=== PATIENT | male | born 1950 | race Caucasian/White ===

== ENCOUNTER 2017-07-23 07:47 | Day surgery (SDC) | payer MEDICARE, OTHER ==
[2017-07-21 10:52] VITALS: BMI 36.7
[~2017-07-23 07:47] MED LIST: LACTATED RINGERS 1,000 ML IV SCH; LIDOCAINE 1% 20 ML VIAL (10MG/ML) FOR IV START INTRADERMA PRN
[2017-07-23 08:19] VITALS: RESP 16; TEMP 97.7
[2017-07-23 08:24] LABS: Glucose,Whole Blood 153 mg/dL (75-99)
[2017-07-23] MEDS ORDERED: PROPOFOL 10 MG/ML 20 ML VIAL IV ONE (08:42)
--- NOTE | 2017-07-23 09:14 | P.PCN ---
Date of Procedure: 07/23/17 Preoperative Diagnosis: Postoperative Diagnosis: Procedure(s) Performed: Procedure: Total colonoscopy. Preoperative diagnosis: Screening for neoplasia, patient has history of polyps. Postoperative diagnosis: Diverticulosis with no evidence of acute diverticulitis , strictures, polyps or cancer. Preparation: HalfLytely prep. Sedation: Was provided by anesthesia. Brief clinical history: The patient is a 67-year-old male who is scheduled for this evaluation for screening for neoplasia because of history of polyps. His last exam was in April 2012. The patient has no abdominal complaints bleeding or anemia. Procedure: With the patient on his left lateral decubitus position and after informed consent and adequate sedation, the perianal area was inspected and it did not show any fissures or fistulas. There were no masses felt on digital rectal examination. The Olympus CFQ 160L video colonoscope was then inserted in the rectum in the usual fashion and advanced to the cecum. Unfortunately, the preparation was less than ideal, and there was significant amount of thick fecal debris and fecal material for which I spent sometime washing and mobilizing. The mucosa appeared healthy. No obvious polyps or tumors were seen. Multiple diverticular orifices were seen scattered on both, the right and left side of the colon with no evidence of acute diverticulitis or strictures. I retroflexed the endoscope in the rectum before the endoscope was withdrawn. The patient tolerated the procedure well. Plan: The patient was reassured. Discussed dietary measures. He will follow up with you as planned and I recommended repeat exam in 5 years. Implants: Indications for Procedure: Operative Findings: Description of Procedure:
[2017-07-23 09:17] VITALS: PULSE 60
[2017-07-23 09:25] LABS: Glucose,Whole Blood 159 mg/dL (75-99)
[2017-07-23 09:57] VITALS: BP 118/65
== END 2017-07-23 10:02 | disposition home or self-care (01) ==
LOC: ORWHC2ENDO 07:47
DX: Z12.11 Encounter for screening for malignant neoplasm of colon (principal); K57.30 Diverticulosis of large intestine without perforation or abscess without bleeding; Z86.010 Personal history of colon polyps; M19.90 Unspecified osteoarthritis, unspecified site; E11.9 Type 2 diabetes mellitus without complications; I10 Essential (primary) hypertension; M10.9 Gout, unspecified; E78.5 Hyperlipidemia, unspecified; Z95.0 Presence of cardiac pacemaker; Z79.899 Other long term (current) drug therapy; Z79.82 Long term (current) use of aspirin; Z79.84 Long term (current) use of oral hypoglycemic drugs; Z87.891 Personal history of nicotine dependence
CPT/HCPCS: J2704; G0105

== ENCOUNTER → 2018-11-11 | Outpatient (CLI) | payer MEDICARE, OTHER ==
--- NOTE | 2018-11-11 11:19 | CT ---
EXAMINATION TYPE: CT cervical spine wo con DATE OF EXAM: 11/11/2018 COMPARISON: None HISTORY: Neck pain, Spondylosis CT DLP: 717.90 mGycm CONTRAST: None CT of the cervical spine is performed in the axial plane at 2 mm thick sections. Reconstructed image s in the coronal, and sagittal plane are reviewed on the computer. No acute fractures are evident. There is straightening of the cervical spine sagittal plane. Posterior spinal lamellar line is intact . There is loss of disc height C6-7. Milder disc height loss may be present C4-5 through C7-T1. Vertebral body heights are preserved. No AP spinal canal stenosis is present. Some endplate spurring is from the inferior endplate of C5. S pondylosis is present. Facet hypertrophy is present on the left at C2-3 with mild foraminal narrowing. Uncovertebral joint h ypertrophy is causing narrowing of the right C3-4 foramen. IMPRESSIONS: 1. Degenerative disc changes discussed above. 2. Uncovertebral joint hypertrophy and some facet hypertrophy contributing to foraminal narrowing dis cussed above
== END | disposition home or self-care (01) ==
LOC: RADCTMAIN 10:02
PROVIDERS: ATTEND Physical Medicine & Rehabilitation
DX: M99.71 Connective tissue and disc stenosis of intervertebral foramina of cervical region (principal); M47.812 Spondylosis without myelopathy or radiculopathy, cervical region; M46.92 Unspecified inflammatory spondylopathy, cervical region
CPT/HCPCS: 72125

== ENCOUNTER → 2021-06-12 | Outpatient (CLI) | payer MEDICARE ==
--- NOTE | 2021-06-12 13:08 | US ---
EXAMINATION TYPE: US duplex aorta DATE OF EXAM: 06/12/2021 COMPARISON: NONE CLINICAL HISTORY: Z13.6 Screening for abdominal aortic aneurysm. no symptoms or family history EXAM MEASUREMENTS: Abdominal Aorta: Proximal: 2.2 x 2.4cm Mid: 2.1 x 2.0cm Distal: 1.7 x 2.1cm Bifurcation: not seen due to bowl gas IMPRESSION: No sonographic evidence for abdominal aortic aneurysm.
== END | disposition home or self-care (01) ==
LOC: RADUSWWP 09:31
PROVIDERS: ATTEND Family Medicine
DX: Z13.6 Encounter for screening for cardiovascular disorders (principal)
CPT/HCPCS: 93979

== ENCOUNTER → 2021-08-12 | Outpatient (CLI) | payer MEDICARE ==
[2021-08-12 16:10] LABS: Chol/HDL Ratio 2.25; LDL Cholesterol,Calculated 52.6 mg/dL (0.0-131.0); VLDL Calculation 18.4 mg/dL (5.00-40.00)
== END | disposition home or self-care (01) ==
LOC: LABWHC1 08:45
PROVIDERS: ATTEND Family Medicine
DX: E11.40 Type 2 diabetes mellitus with diabetic neuropathy, unspecified (principal); E78.00 Pure hypercholesterolemia, unspecified
CPT/HCPCS: 36415; 80061; 83036

== ENCOUNTER → 2021-08-12 | Outpatient (CLI) | payer MEDICARE ==
[2021-08-12 09:19] LABS: HGB 13.3 gm/dL (13.0-17.5); MCHC 33.3 g/dL (31.0-37.0); MCV 92.8 fL (80.0-100.0); Mean Platelet Volume 7.6; Platelet Count 200 k/uL (150-450); RBC 4.31 m/uL (4.30-5.90); RDW 13.3 % (11.5-15.5); WBC 6.1 k/uL (3.8-10.6)
[2021-08-12 09:28] LABS: Albumin 4.2 g/dL (3.5-5.0); Calcium 10.1 mg/dL (8.4-10.2); Potassium 5.2 mmol/L (3.5-5.1); Total Protein 7.2 g/dL (6.3-8.2)
[2021-08-12 09:37] LABS: INR 0.9 (<1.2); Partial Thromboplastin Time 21.9 sec (22.0-30.0); Prothrombin Time 10.2 sec (9.0-12.0)
[2021-08-12 09:50] LABS: Appearance,Urine Clear (Clear); Bilirubin,Urine Negative (Negative); Blood,Urine Negative (Negative); Color,Urine Light Yellow; Glucose,Urine (UA) Negative (Negative); Hyaline Casts,Urine 1 /lpf (0-2); Ketones,Urine Negative (Negative); Leukocyte Esterase,Urine Moderate (Negative); Mucus,Urine Rare /hpf; Nitrite,Urine Negative (Negative); Protein,Urine Negative (Negative); RBC,Urine 1 /hpf (0-5); Specific Gravity,Urine 1.006 (1.001-1.035); Squamous Epithelial Cell,Urine <1 /hpf (0-4); Urobilinogen,Urine <2.0 mg/dL (<2.0); WBC,Urine 1 /hpf (0-5)
== END ==
LOC: PAT 08:14
PROVIDERS: ATTEND Orthopaedic Surgery
DX: Z01.812 Encounter for preprocedural laboratory examination (principal); E11.40 Type 2 diabetes mellitus with diabetic neuropathy, unspecified; E78.00 Pure hypercholesterolemia, unspecified
CPT/HCPCS: 36415; 80053; 81001; 85027; 85610; 85730; 87070

== ENCOUNTER 2021-08-29 06:16 | Day surgery (SDC) | payer MEDICARE ==
[2021-08-28 10:53] VITALS: BMI 34.4
[~2021-08-29 06:16] MED LIST changes: -LACTATED RINGERS 1,000 ML IV SCH; -LIDOCAINE 1% 20 ML VIAL (10MG/ML) FOR IV START INTRADERMA PRN; +SODIUM CHLORIDE 0.9% 1,000 ML IV SCH
[2021-08-29] MEDS ORDERED: SODIUM CHLORIDE 0.9% 500 ML 500 ML IV ONE (06:48)
[2021-08-29 07:08] LABS: Glucose,Whole Blood 112 mg/dL (75-99)
[2021-08-29 07:14] VITALS: BP 179/83; RESP 16; TEMP 98.6
[2021-08-29] MEDS ORDERED: IOPAMIDOL-300 50ML BTL INJ ONE (08:23)
[2021-08-29 08:30] VITALS: PULSE 80
--- NOTE | 2021-08-29 09:02 | P.EPPROC ---
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 These right-sided leads Right atrial lead was a screw-in lead in the right atrial appendage. No fractures or breaks noted excellent position RV lead screwed in the RV apex excellent position Right upper extremity venogram 50 mL IV dye injected 100% Occluded axillary/subclavian vein Cephalic vein empties into the internal jugular Left upper extremity venography performed Patent cephalic vein Nonvisualization of the axillary vein but the innominate flow is excellent No innominate stenosis no innominate SVC junction stenosis Plan Proceed with LV lead implant from the left side Tunneling of the lead to the right side Procedure will be performed under general anesthesia
== END 2021-08-29 08:52 | disposition home or self-care (01) ==
LOC: CATHEP 06:16
PROVIDERS: ATTEND Internal Medicine Clinical Cardiac Electrophysiology
DX: I25.10 Atherosclerotic heart disease of native coronary artery without angina pectoris (principal); I10 Essential (primary) hypertension; E78.5 Hyperlipidemia, unspecified; E11.9 Type 2 diabetes mellitus without complications; F17.210 Nicotine dependence, cigarettes, uncomplicated; Z79.82 Long term (current) use of aspirin; Z79.899 Other long term (current) drug therapy
CPT/HCPCS: 36005; 75820; 87635; Q9967

== ENCOUNTER → 2021-10-18 | Outpatient (CLI) | payer MEDICARE | END | disposition home or self-care (01) | LOC: LABPAT 09:11 | PROVIDERS: ATTEND Internal Medicine Clinical Cardiac Electrophysiology | DX: Z01.812 Encounter for preprocedural laboratory examination (principal); Z20.822 Contact with and (suspected) exposure to COVID-19 | CPT/HCPCS: 87635; C9803 ==

== ENCOUNTER 2021-10-22 09:54 | Day surgery (SDC) | payer MEDICARE ==
[2021-10-17 15:29] VITALS: BMI 35.5
[~2021-10-22 09:54] MED LIST changes: +LACTATED RINGERS 1,000 ML IV SCH; -SODIUM CHLORIDE 0.9% 1,000 ML IV SCH; +ceFAZolin 1 GM in SODIUM CHLORIDE 0.9% 250 ML IRRIGATION PRN
[2021-10-22 10:22] LABS: Glucose,Whole Blood 126 mg/dL (75-99)
[2021-10-22 10:34] LABS: Basophils % (A) 0 %; Eosinophils # (A) 0.3 k/uL (0-0.7); Eosinophils % (A) 4 %; HCT 42.9 % (39.0-53.0); HGB 14.3 gm/dL (13.0-17.5); Lymphocytes # (A) 2.1 k/uL (1.0-4.8); Lymphocytes % (A) 25 %; MCH 30.1 pg (25.0-35.0); MCHC 33.3 g/dL (31.0-37.0); MCV 90.5 fL (80.0-100.0); Mean Platelet Volume 7.8; Monocytes # (A) 0.5 k/uL (0-1.0); Monocytes % (A) 6 %; Neutrophils # (A) 5.3 k/uL (1.3-7.7); Neutrophils % (A) 63 %; Platelet Count 239 k/uL (150-450); RBC 4.74 m/uL (4.30-5.90); RDW 12.6 % (11.5-15.5); WBC 8.4 k/uL (3.8-10.6)
[2021-10-22 10:49] LABS: African American GFR (CKD) >90 (>60 ml/min/1.73 sqM); Anion Gap 10 mmol/L; Blood Urea Nitrogen 15 mg/dL (9-20); Calcium 10.2 mg/dL (8.4-10.2); Carbon Dioxide 24 mmol/L (22-30); Chloride 105 mmol/L (98-107); Glucose 149 mg/dL (74-99); Non-African American GFR(CKD) 84 (>60 ml/min/1.73 sqM); Sodium 139 mmol/L (137-145)
[2021-10-22] MEDS ORDERED: LIDOCAINE 1% INJ 10MG/ML (20 ML MDV) ONE ×2 (10:50→11:25)
[2021-10-22 10:57] LABS: Potassium 5.1 mmol/L (3.5-5.1)
[2021-10-22] MEDS ORDERED: IV FLUID CONTINUATION 1,000 ML IV ONE (11:15)
[2021-10-22] MEDS ORDERED: PROPOFOL 10 MG/ML 20 ML VIAL IV ONE (11:25)
[2021-10-22] MEDS ORDERED: fentaNYL (PF) 50 MCG/ML 2 ML AMP ONE (11:25)
[2021-10-22] MEDS ORDERED: MIDAZOLAM 2 MG/2 ML VIAL ONE (11:25)
[2021-10-22] MEDS ORDERED: PHENYLEPHRINE-0.9% NACL SYG 1,000 MCG/10 ML SYRINGE ONE (11:25)
[2021-10-22] MEDS ORDERED: SUCCINYLCHOLINE CHLORIDE 100 MG/5 ML SYR IV ONE (11:25)
[2021-10-22] MEDS ORDERED: LIDOCAINE 1% INJ 10MG/ML (20 ML MDV) SQ ONE ×2 (12:18→12:30)
[2021-10-22] MEDS ORDERED: VANCOMYCIN 2,000 MG in SODIUM CHLORIDE 0.9% 500 ML 500 ML IVPB STA (12:20)
[2021-10-22] MEDS ORDERED: IOPAMIDOL-370 50ML BTL INJ ONE (12:39)
[2021-10-22] MEDS ORDERED: ACETAMINOPHEN TAB 325 MG TAB PO PRN (14:27)
[2021-10-22] MEDS ORDERED: ACETAMINOPHEN IV (For NPO) 1,000 MG in EMPTY BAG 1 BAG IVPB ONE (14:27)
--- NOTE | 2021-10-22 15:29 | CE ---
CARDIAC ELECTROPHYSIOLOGY REPORT Mr. Raul Fernandez is a 71-year-old male patient of Dr. Garza who had right sided dual-chamber pacemaker implanted several years back. He has 2:1 heart block and has 100% RV pacing. He has developed progressive cardiomyopathy. He underwent an upgrade to a biventricular pacemaker. The patient is brought to the EP lab in a fasting state. Written informed consent was obtained prior to the procedure. The procedure performed under general anesthesia. The LV lead was implanted from the left subclavian floor/axillary vein. Once this was performed, the lead was tunneled under the skin to the right side and connected to a new generator and implanted in the right side. The old right-sided dual pacemaker generator was explanted. IV antibiotics were administered. A 3 cm incision was made in the left deltopectoral groove. A small subfascial pocket was made. Hemostasis was assured. The left axillary vein was accessed and a sheath was placed. The coronary sinus was accessed. The coronary sinus venogram revealed an anterolateral vein. The anterolateral vein had significant tortuosity and therefore this vein was subselected and an Advantage wire was placed in the vein. The subselecting sheath was placed into the vein. The lead was delivered. The screw-in lead the Medtronic lead was placed. This was a Medtronic model #4798, 88 cm length and serial number [id number]. This was screwed in position and was found to be stable. Pacing thresholds were excellent. Diaphoretic stimulation was noted only in the proximal pacing leads intermittently at 10V. It was absent at 5 V. There was no diaphragmatic stimulation when pacing by pulse. Once the lead was secured, the sheaths were removed. The lead was secured to the underlying pectoralis muscle. The right-sided pocket was then accessed. An incision was made over the generator. The incision was carried down to the level of the generator. The leads were freed. A new subfascial pocket was made to accommodate the larger generator. Hemostasis was assured. Using a tunneling tool, the LV lead from the left side was delivered under the skin, within the subcutaneous tissue into the right side. The new generator was implanted while the old generator was explanted. The new generator was [id number], serial number [id number]. This was a Medtronic Solada quadripolar device CRTP MRI. The old generator was an Ivisor DR, serial number [id number]. The leads were interrogated and then connected to the new generator. The generator was secured to the underlying pectoralis muscle on the right side and the wound was closed in 3 layers and dressed per protocol. The left-sided wound was also closed and dressed per protocol in 3 layers. RESULT: 1. Left-sided LV lead implant: Medtronic screw-in lead in the anterolateral vein. 2. Right-sided dual-chamber pacemaker generator explant for progressive cardiomyopathy, complete heart block with 100% RV pacing. 3. Tunneling of the LV lead from the left side to the right side. 4. Implantation of right-sided biventricular pacemaker generator. This was a long procedure involving tunneling of the lead and opening two pockets and forming 2 subfascial pockets, 1 for the left side and 1 for the right side of new the pocket. Patient tolerated the procedure well without any acute complications. He received IV vancomycin through the procedure. MMODL / IJN: [id number] /
--- NOTE | 2021-10-22 15:35 | XR ---
EXAMINATION TYPE: XR chest 1V portable DATE OF EXAM: 10/22/2021 COMPARISON: Chest x-ray 08/12/2014 HISTORY: Lead placement check TECHNIQUE: Single frontal view of the chest is obtained. FINDINGS: There is been placement of a generator in the right pectoral region, there are leads cours ing into the right atrium, right ventricle, coronary sinus level. Coronary sinus lead courses via the left subclavian approach. No evident pneumothorax or pleural effusion. Heart is enlarged. Technique is apical lordotic and rotated. Aorta is dense. There are overlying artifacts. IMPRESSION: No evident, condition status post lead placement as described.
[2021-10-22] MEDS: SODIUM CHLORIDE 0.9% 1,000 ML IV SCH ×8 (17:33→17:43)
[2021-10-22 17:53] LABS: Glucose,Whole Blood 126 mg/dL (75-99)
[2021-10-22 20:36] LABS: Glucose,Whole Blood 223 mg/dL (75-99)
[2021-10-22] MEDS ORDERED: ATORVASTATIN 40 MG TAB PO SCH (21:00)
[2021-10-22] MEDS ORDERED: METOPROLOL SUCCINATE (ER) 100 MG TAB.ER.24H PO SCH (21:00)
[2021-10-22] MEDS: lisinopriL 20 MG TAB PO SCH (21:10)
[2021-10-22 22:45] VITALS: RESP 18
[2021-10-23 05:42] LABS: Glucose,Whole Blood 162 mg/dL (75-99)
[2021-10-23] MEDS ORDERED: glipiZIDE 5 MG TAB PO SCH (07:30)
[2021-10-23 07:58] VITALS: BP 149/76; PULSE 73; TEMP 98.3
[2021-10-23] MEDS: lisinopriL 20 MG TAB PO SCH (07:59)
[2021-10-23] MEDS ORDERED: METOPROLOL SUCCINATE (ER) 50 MG TAB.ER.24H PO SCH ×2 (09:00)
[2021-10-23] MEDS ORDERED: ASPIRIN 81 MG PO SCH (09:00)
--- NOTE | 2021-10-23 10:50 | P.DS ---
Providers Attending physician: Nelson Santana Primary care physician: [facility] Course: Patient is doing very well. No chest discomfort no dizziness no lightheadedness His pacemaker sites have healed well Afebrile 98.3F pulse rate in the 70s normal respirations Blood pressure 149/76 mmHg, 130 was 74 mmHg Heart sounds and S2 are normal no murmurs Breath sounds are clear no rhonchi no crackles normal breath sounds are equal bilaterally Pacemaker sites have healed well no hematoma Impression 2-1 heart block with high RV pacing percentage Aggressive cardio myopathy Upgrade to a biventricular pacemaker yesterday The LV lead was placed from the left subclavian vein The lead was then tunneled across to the right side The patient had a right-sided dual-chamber pacemaker The pacemaker generator was changed to a biventricular pacemaker Today the interrogation of the pacemaker is normal thresholds were excellent He received his IV antibiotics I'm increasing the dose of metoprolol 200 mg twice daily, succinate He'll be discharged home and will follow with Dr. Garza as scheduled 400 device clinic in a week Plan - Discharge Summary Discharge Rx Participant: No New Discharge Prescriptions: New Metoprolol Succinate (ER) [Toprol XL] 100 mg PO BID 90 Days #180 tablet Continue Aspirin 81 mg PO DAILY Allopurinol [Zyloprim] 100 mg PO BID Simvastatin [Zocor] 80 mg PO HS metFORMIN HCL [Glucophage] 750 mg PO BID glipiZIDE [Glucotrol] 5 mg PO AC-BRKFST lisinopriL 40 mg PO BID Meloxicam 15 mg PO DIRECTED PRN PRN Reason: Pain Discontinued Metoprolol Succinate [Toprol XL] 100 mg PO HS Metoprolol Succinate [Toprol XL] 50 mg PO QAM Discharge Medication List Allopurinol [Zyloprim] 100 mg PO BID 08/12/14 [History] Aspirin 81 mg PO DAILY 08/12/14 [History] Simvastatin [Zocor] 80 mg PO HS 07/21/17 [History] metFORMIN HCL [Glucophage] 750 mg PO BID 07/21/17 [History] Meloxicam 15 mg PO DIRECTED PRN 08/28/21 [History] glipiZIDE [Glucotrol] 5 mg PO AC-BRKFST 08/28/21 [History] lisinopriL 40 mg PO BID 08/28/21 [History] Metoprolol Succinate (ER) [Toprol XL] 100 mg PO BID 90 Days #180 tablet 10/23/21 [Rx] Follow up Appointment(s)/Referral(s): Marily Garza MD [STAFF PHYSICIAN] - 10/28/21 11:00 am (APPOINTMENT MADE ON September @ 11:00AM IN THE DEVICE CLINIC FOR DRESSING REMOVAL AND DEVICE CHECK THE OFFICE WILL CALL YOU WITH AN APPOINTMENT DATE AND TIME ) Patient Instructions/Handouts: Moderate Sedation (ED), Pacemaker (GEN) Activity/Diet/Wound Care/Special Instructions: Follow up with Dr. Garza in October for follow up appointment scheduled.
[2021-10-25] MEDS ORDERED: metFORMIN 500 MG TAB PO SCH (09:00)
== END 2021-10-23 12:53 | disposition home or self-care (01) ==
LOC: CATHEP 09:54 → 3SCARD 14:15 → CATHEP 10-23 12:53
PROVIDERS: ATTEND Internal Medicine Clinical Cardiac Electrophysiology
DX: Z45.010 Encounter for checking and testing of cardiac pacemaker pulse generator [battery] (principal); I25.5 Ischemic cardiomyopathy; I10 Essential (primary) hypertension; E78.5 Hyperlipidemia, unspecified; E11.9 Type 2 diabetes mellitus without complications; F17.210 Nicotine dependence, cigarettes, uncomplicated; G47.33 Obstructive sleep apnea (adult) (pediatric); M19.90 Unspecified osteoarthritis, unspecified site; Z79.84 Long term (current) use of oral hypoglycemic drugs; Z79.899 Other long term (current) drug therapy
CPT/HCPCS: 33225; 33214; 80048; 85025; 71045; C1769 ×5; C1750; C1730; C1887; C2621; C1900; J2250; J3370; J0690 ×2; J2001; J3010; J0131; J2370; J0330; J2704; Q9967

== ENCOUNTER → 2022-01-21 | Outpatient (CLI) | payer MEDICARE ==
[2022-01-21 13:05] LABS: Partial Thromboplastin Time 22.9 sec (22.0-30.0); Prothrombin Time 10.4 sec (9.0-12.0)
[2022-01-21 13:51] LABS: Appearance,Urine Cloudy (Clear); Bilirubin,Urine Negative (Negative); Blood,Urine Negative (Negative); Calcium Oxalate Crystals,Urine Many /hpf; Color,Urine Dark Yellow; Glucose,Urine (UA) Negative (Negative); Hyaline Casts,Urine 15 /lpf (0-2); Ketones,Urine Trace (Negative); Leukocyte Esterase,Urine Moderate (Negative); Mucus,Urine Rare /hpf; Nitrite,Urine Negative (Negative); PH, Urine 5.5 (5.0-8.0); Protein,Urine 1+ (Negative); Specific Gravity,Urine 1.021 (1.001-1.035); Squamous Epithelial Cell,Urine <1 /hpf (0-4); WBC,Urine 16 /hpf (0-5)
[2022-01-21 18:59] LABS: HCT 39.5 % (39.6-50.0); HGB 12.4 g/dL (13.0-17.0); MCH 29.2 pg (27.0-32.0); MCHC 31.4 g/dL (32.0-37.0); MCV 93.2 fL (80.0-97.0); Mean Platelet Volume 10.8 fL (9.5-12.2); NRBC Per 100 WBC 0 /100 WBCS (0.0-0.0); Platelet Count 194 X 10*3/uL (140-440); RBC 4.24 X 10*6/uL (4.40-5.60); RDW 13.7 % (11.5-14.5); WBC 6.18 X 10*3/uL (4.50-10.00)
[2022-01-21 19:05] LABS: African American GFR (CKD) 71.3 (60.0-200.0); Albumin 4.3 g/dL (3.8-4.9); Albumin/Globulin Ratio 1.55 (1.60-3.17); Anion Gap 11.4 mmol/L (10.00-18.00); BUN/Creat Ratio 12.31 Ratio (12.00-20.00); Blood Urea Nitrogen 14.4 mg/dL (9.0-27.0); Carbon Dioxide 22.8 mmol/L (20.0-27.5); Globulin 2.8 g/dL (1.6-3.3); Non-African American GFR(CKD) 61.5 (60.0-200.0); Potassium 4.7 mmol/L (3.5-5.5); Total Bilirubin 0.9 mg/dL (0.30-1.20); Total Protein 7.1 g/dL (6.2-8.2)
== END | disposition home or self-care (01) ==
LOC: LABPAT 11:30
PROVIDERS: ATTEND Orthopaedic Surgery
DX: Z01.812 Encounter for preprocedural laboratory examination (principal); M17.12 Unilateral primary osteoarthritis, left knee
CPT/HCPCS: 80053; 81001; 85027; 85610; 85730; 87070

== ENCOUNTER 2022-02-03 10:39 | Observation (INO) | payer MEDICARE ==
[2022-01-30 15:06] VITALS: BMI 35.5
[~2022-02-03 10:39] MED LIST changes: +ACETAMINOPHEN TAB 500 MG TAB PO PRN; -LACTATED RINGERS 1,000 ML IV SCH; +MELOXICAM 7.5 MG TAB PO PRN; +ONDANSETRON 4 MG/2 ML VIAL IVP PRN; +TRANEXAMIC ACID 1,000 MG in SODIUM CHLORIDE 0.9% 100 ML IVPB PRN; -ceFAZolin 1 GM in SODIUM CHLORIDE 0.9% 250 ML IRRIGATION PRN; +ceFAZolin 3 GM in SODIUM CHLORIDE 0.9% 100 ML IVPB PRN
[2022-02-03] MEDS ORDERED: DEXAMETHASONE SOD PHOSPHATE 4 MG/ML 1 ML VIAL IV ONE (11:01)
[2022-02-03] MEDS ORDERED: ONDANSETRON 4 MG/2 ML VIAL IVP ONE (11:01)
[2022-02-03] MEDS ORDERED: HYDROmorphone 0.5 MG/0.5 ML SYRINGE IVP PRN (11:01)
[2022-02-03 11:38] LABS: Glucose,Whole Blood 153 mg/dL (75-99)
[2022-02-03] MEDS: LACTATED RINGERS 1,000 ML IV SCH ×4 (11:38→23:55)
[2022-02-03] MEDS ORDERED: MIDAZOLAM 2 MG/2 ML VIAL IVP ONE (12:04)
[2022-02-03] MEDS ORDERED: fentaNYL (PF) 50 MCG/ML 2 ML AMP ONE (12:32)
[2022-02-03] MEDS ORDERED: PROPOFOL 10 MG/ML 20 ML VIAL IV ONE (12:32)
[2022-02-03] MEDS ORDERED: SODIUM CHLORIDE 0.9% 100 ML BAG ONE (12:32)
[2022-02-03] MEDS ORDERED: MIDAZOLAM 2 MG/2 ML VIAL ONE (12:32)
[2022-02-03] MEDS ORDERED: TRANEXAMIC ACID 1,000 MG/10 ML VIAL ONE (12:32)
[2022-02-03] MEDS ORDERED: DEXAMETHASONE SOD PHOSPHATE 4 MG/ML 1 ML VIAL ONE (12:32)
[2022-02-03] MEDS ORDERED: KETAMINE 10 MG/ML 20 ML VIAL ONE (12:32)
[2022-02-03] MEDS ORDERED: ROPIVACAINE 5 MG/ML 30 ML VIAL ONE (12:32)
[2022-02-03] MEDS ORDERED: ceFAZolin 3,000 MG in SODIUM CHLORIDE 0.9% IRRIGATIO 3,000 ML IRRIGATION ONE (12:35)
--- NOTE | 2022-02-03 13:28 | P.ANPRN ---
Procedure Note - Anesthesia - Nerve Block Performed Left Adductor Canal Infusion Time Out Performed: Yes Date of Procedure: 02/03/22 Procedure Start Time: 12:03 Procedure Stop Time: 12:14 Location of Patient: PreOp Indication: Acute Post-Operative Pain, Requested by Surgeon Sedation Type: Sedate with meaningful contact maintained Preparation: Sterile Prep, Sterile Dressing Position: Supine Catheter: Indwelling Needle Types: Pajunk Needle Gauge: 21 Ultrasound used to visualize needle placement: Yes Ultrasound used to observe medication spread: Yes Blood Aspirated: No Pain Paresthesia on Injection Noted: No Resistance on Injection: Normal Image Stored and Saved: Yes Events: Uneventful and Well Tolerated (ropi .5% 20cc)
--- NOTE | 2022-02-03 13:30 | P.ANPRN ---
Procedure Note - Anesthesia - Nerve Block Performed Left iPack Single Time Out Performed: Yes Date of Procedure: 02/03/22 Procedure Start Time: 12:15 Procedure Stop Time: 12:18 Location of Patient: PreOp Indication: Acute Post-Operative Pain, Requested by Surgeon Sedation Type: Sedate with meaningful contact maintained Preparation: Sterile Prep Position: Supine Needle Types: Pajunk Needle Gauge: 21 Ultrasound used to visualize needle placement: Yes Ultrasound used to observe medication spread: Yes Blood Aspirated: No Pain Paresthesia on Injection Noted: No Resistance on Injection: Normal Image Stored and Saved: Yes Events: Uneventful and Well Tolerated (ropi .5% 25cc plus dexamethasone 4mg)
[2022-02-03] MEDS ORDERED: LACTATED RINGERS 1,000 ML IV ONE ×2 (14:20)
--- NOTE | 2022-02-03 14:29 | P.OP ---
Date of Procedure: 02/03/22 Procedure(s) Performed: PREOPERATIVE DIAGNOSIS: Left knee severe osteoarthritis with genu varum POSTOPERATIVE DIAGNOSIS: Left knee severe osteoarthritis with genu varum OPERATION: Left knee cemented total replacement arthroplasty. ANESTHESIA: General and regional ESTIMATED BLOOD LOSS: 50 ml. GAG WRITER: Mirtha Avila PA-C (assistance with: patient positioning, retraction, exposure, hemostasis, leg positioning, implantation, irrigation, closure, dressing) COMPLICATIONS: None apparent. COMPONENTS IMPLANTED: Persona system from [employer] INDICATIONS: Raul is a 71 year old male with a history of left knee osteoarthritis. Conservative treatment has been tried and has been unsuccessful in controlling symptoms adequately. The operation of knee replacement has been discussed at length in the office, as well as potential risks and complications. These are inclusive of, but not limited to: bleeding, infection, scarring, discomfort, blood vessel and nerve damage, need for further surgery, failure to relieve symptoms, persistence, recurrence, or worsening of problems, loosening, dislocation, wear, blood clot, pulmonary embolism, , gait dysfunction, stiffness, and other risks as discussed in the office. The patient elects to proceed and the consent form has been signed. PROCEDURE: The patient was taken to the operating room and positioned on the operating room table in the supine position. Anesthesia was initiated. Care was taken to make sure that all pressure points were adequately padded. The operative lower extremity was prepped and draped in the usual aseptic fashion using ChloraPrep. Ioban drape was used for the case and the patient received intravenous antibiotics within one hour of the incision. A pneumotourniquet and leg lucas were used for the case. The limb was exsanguinated with an Esmarch bandage and the tourniquet was inflated to 250 mmHg. Time-out was called confirming the patient's identity, side, procedure and administration of antibiotics and tranexamic acid, 1 g IV. The incision was then created midline directly over the knee, carried down through skin and into the subcutaneous tissues and down to fascia. Full thickness subcutaneous medial flap was developed. Medial parapatellar arthrotomy was performed and the interior of the knee was inspected. There was end-stage osteoarthritis of the knee with a mild to moderate genu varum type deformity. The fat pad was excised and proximal medial release on the tibia was completed using meticulous dissection and a curved osteotome. The anterior cruciate ligament was taken down. Note was made of significant attrition of the anterior and significant degenerative appearance of the posterior cruciate ligaments. The exposure was excellent. The knee was flexed 90 degrees and the patella was everted. A spot was chosen on the femur approximately 1 cm anterior to the posterior cruciate ligament insertion and an intramedullary hole was created within the femur. The intramedullary guide was then set to 5 degrees of valgus. The distal cutting block was attached and pinned into position. An appropriate amount of distal femoral resection was set. The oscillating saw was then used to make the distal femoral cut. This cut was confirmed to be flat with the flat end of an osteotome. The retractors were placed around the tibia and the tibial surface was addressed. The angle and depth of resection was adjusted using an extramedullary cutting guide. The guide had a built-in 3 degree posterior slope cut. Once the cutting guide was adjusted appropriately and in line with the axis of the tibia and confirmed to be in good position in relation to the second metatarsal and transmalleolar axis, the tibial cut was then created with protection of the posterior neurovascular structures and the collateral ligaments. The tibial cut surface was removed and sized. Femoral sizing was then accomplished using anterior referencing. The size of the femur was very large, but within the range of the inventory of the Persona femoral components. Care was taken to analyze the posterior condyles for signs of deficiency or severe wear, and adjustments to the guide were made, as appropriate. 3 degree external rotation pins were placed. The cutting jig for the femur was applied to these pins. The planned cuts were further analyzed prior to performing them with the oscillating saw. No femoral notching was produced. Bone fragments were removed and the cut surfaces were finished, as necessary, with a reciprocating saw. Spacer block technique was then used to confirm that the flexion and extension gaps were equal. Soft tissue releases and adjustment of the tibial and/or femoral cuts were made, as necessary, until the gaps were equal. This included release of the posterior cruciate ligament, which was tight in this patient. The femur was then further finished for a posterior cruciate ligament substituting component. Patellar resurfacing was performed using a reamer. The size of the required patellar component was estimated and the patellar surface was then reamed down to a residual thickness which would recreate the [place] thickness with the component. The exact placement of the patellar component was adjusted for position based on preoperative x-rays and intraoperative findings. The trial components were inserted. The tibial tray was allowed to self center and the patella was noted to track very well. The position of the tibial component was marked and the tibia was then finished for a stemmed tibial component. Cement was mixed on the back table and applied to the final components. Trial components were removed and the cut surfaces of the bone were pulse lavaged thoroughly and dried. Cement was then applied to the tibial surface and pressurized into the surface using finger pressurization technique. The tibial component was then applied and excess cement was removed after it was impacted securely and noted to be flush with the cut surface. In similar fashion, the cement was applied to the cut femoral surface, pressurized in using finger pressurization and the component was impacted into place. Excess cement was removed. The polyethylene spacer was then implanted and locked into position. The patellar component was then applied in similar techn ique and a patellar clamp was used to hold the patella in place as the cement hardened. Once the cement had fully hardened, the knee was reinspected. Any other cement extrusion was removed and final kinematic testing showed range of motion from 0 to 130 degrees with excellent stability, both medially and laterally and appropriate alignment of the leg. Patellar tracking was excellent. The knee was then thoroughly pulse lavaged with normal saline. The tourniquet was deflated and hemostasis was obtained with electrocautery and IV tranexamic acid, 1 g given prior to inflation of the tourniquet and another gram given at the time of closure. Closure was with #2 Ethibond in the fascia and supplemented with #2 Quill, 2-0 Vicryl suture was used for the subcutaneous tissues and 3-0 Quill for the skin. Dermabond/Steri-Strips were then applied. A lightly compressive dressing was applied using Webril and an Vicente wrap. The patient was then transferred to stretcher and taken to the recovery room in stable condition. Sponge and needle counts were correct.
[2022-02-03] MEDS ORDERED: HYDROmorphone 0.2 MG/1 ML SYRINGE IVP PRN (14:46)
[2022-02-03] MEDS ORDERED: HYDROmorphone 1 MG/ML 1 ML SYRINGE IVP PRN (14:46)
[2022-02-03] MEDS ORDERED: NA PHOS,M-B/NA PHOS,DI-BA 133 ML ENEMA RECTAL PRN (14:46)
[2022-02-03] MEDS ORDERED: NALOXONE 0.4 MG/ML 1 ML VIAL IV PRN (14:46)
[2022-02-03] MEDS ORDERED: ONDANSETRON 4 MG/2 ML VIAL IVP PRN (14:46)
[2022-02-03] MEDS ORDERED: HYDROcodone/APAP 5-325MG 1 EACH TAB PO PRN (14:46)
[2022-02-03] MEDS ORDERED: MAGNESIUM HYDROXIDE 2,400 MG/10 ML CUP PO PRN (14:46)
[2022-02-03] MEDS ORDERED: TEMAZEPAM 15 MG CAP PO PRN (14:46)
[2022-02-03] MEDS ORDERED: ROPIVACAINE 0.2%-NS ON-Q PUMP 2 MG/ML EACH MISCELLANE ONE (15:01)
[2022-02-03] MEDS ORDERED: ROPIVACAINE 0.2%-NS ON-Q PUMP 1,090 MG, EMPTY PAIN BALL 1 EACH MISCELLANE ONE (15:01)
[2022-02-03] MEDS: HYDROmorphone 1 MG/ML 1 ML SYRINGE IVP PRN ×2 (15:11→22:12)
--- NOTE | 2022-02-03 15:51 | XR ---
EXAMINATION TYPE: XR knee limited LT DATE OF EXAM: 02/03/2022 COMPARISON: NONE TECHNIQUE: Two views submitted HISTORY: Post op FINDINGS: There is a prosthetic knee in near anatomic alignment. There is soft tissue edema and emphysema. IMPRESSION: 1. Postoperative change. Appears in near-anatomic alignment
[2022-02-03 16:52] LABS: Glucose,Whole Blood 164 mg/dL (75-99)
[2022-02-03] MEDS: METOPROLOL SUCCINATE (ER) 100 MG TAB.ER.24H PO SCH (20:11)
[2022-02-03] MEDS: ceFAZolin 3 GM in SODIUM CHLORIDE 0.9% 100 ML IVPB SCH (20:11)
[2022-02-03] MEDS: ASPIRIN 81 MG PO SCH (20:11)
[2022-02-03 20:46] LABS: Glucose,Whole Blood 317 mg/dL (75-99)
[2022-02-03] MEDS: INSULIN ASPART (NovoLOG) 100 UNIT/ML VIAL SQ SCH (20:55)
[2022-02-03] MEDS ORDERED: ATORVASTATIN 40 MG TAB PO SCH (21:00)
[2022-02-03] MEDS ORDERED: MELATONIN 5 MG TABLET PO SCH (21:00)
[2022-02-03] MEDS ORDERED: SENNOSIDES-DOCUSATE SODIUM 1 EACH TAB PO SCH (21:00)
[2022-02-04 03:00] VITALS: PULSE 67
[2022-02-04] MEDS: ceFAZolin 3 GM in SODIUM CHLORIDE 0.9% 100 ML IVPB SCH (05:19)
[2022-02-04] MEDS: HYDROcodone/APAP 7.5-325MG 1 EACH TAB PO PRN ×2 (05:26→12:52)
[2022-02-04 06:49] LABS: Glucose,Whole Blood 176 mg/dL (75-99)
--- NOTE | 2022-02-04 07:11 | P.PN ---
Progress Note - Text Progress Note Date: 02/04/22 Postoperative day # 1 status post total knee arthroplasty, and adductor canal catheter placed for postoperative analgesia, currently at ropivacaine 0.2% 8 mL per hour and continuous infusion, visual analogue scale is 3-4/10, patient using oral pain medication for breakthrough pain. Assessment and plan= Acute postoperative pain, adductor canal catheter for pain control, pain is well controlled we'll continue the same management.
[2022-02-04 07:32] VITALS: BP 127/71; RESP 17; TEMP 98
[2022-02-04] MEDS: METOPROLOL SUCCINATE (ER) 100 MG TAB.ER.24H PO SCH (08:46)
[2022-02-04] MEDS: ASPIRIN 81 MG PO SCH (08:47)
[2022-02-04] MEDS: INSULIN ASPART (NovoLOG) 100 UNIT/ML VIAL SQ SCH ×2 (08:48→13:34)
[2022-02-04] MEDS ORDERED: MULTIVITAMINS, THERA 1 EACH TAB PO SCH (09:00)
[2022-02-04] MEDS ORDERED: lisinopriL 20 MG TAB PO SCH (09:00)
[2022-02-04] MEDS ORDERED: MELOXICAM 7.5 MG TAB PO SCH (09:00)
[2022-02-04] MEDS ORDERED: allopurinoL 100 MG TAB PO SCH (09:00)
[2022-02-04 09:15] LABS: Basophils # (A) 0.02 X 10*3/uL (0.00-0.10); Basophils % (A) 0.2 %; Eosinophils # (A) 0.04 X 10*3/uL (0.04-0.35); Eosinophils % (A) 0.4 %; HCT 34.6 % (39.6-50.0); HGB 11.3 g/dL (13.0-17.0); Immature Grans, Automated 0.3 %; Lymphocytes # (A) 1.34 X 10*3/uL (0.90-5.00); Lymphocytes % (A) 13.3 %; MCH 29.7 pg (27.0-32.0); MCHC 32.7 g/dL (32.0-37.0); MCV 90.8 fL (80.0-97.0); Mean Platelet Volume 10.6 fL (9.5-12.2); Monocytes # (A) 1.06 X 10*3/uL (0.20-1.00); Monocytes % (A) 10.5 %; NRBC Per 100 WBC 0 /100 WBCS (0.0-0.0); Neutrophils % (A) 75.3 %; Platelet Count 183 X 10*3/uL (140-440); RBC 3.81 X 10*6/uL (4.40-5.60); RDW 13.3 % (11.5-14.5); WBC 10.09 X 10*3/uL (4.50-10.00)
--- NOTE | 2022-02-04 09:26 | P.DS ---
Providers Date of admission: 02/04/22 07:34 Expected date of discharge: 02/04/22 Attending physician: Inder Anderson Consults: 02/03/22 14:46 Consult Physician Routine Consulting Provider: Robb Valdez Consult Reason/Comments: Medical management Do you want consulting provider notified?: Yes Primary care physician: Yanique Lee [facility] Course: This is a 71-year-old male who has been followed in our office by Dr. Anderson for continued complaints of left knee pain due to left knee osteoarthritis. Treatment options were discussed, and patient elected to undergo a left total knee arthroplasty. Patient was seen pre-operatively by Dr. Lee [facility] and cleared for surgery. Patient underwent a left total knee arthroplasty on 02/03/[address] Anderson. The procedure was performed without complication or sequelae. The patient is doing fairly well postoperatively. Vital signs and labs are stable on postoperative day #1. Patient was examined bedside today. Patient states he is overall doing very well and the pain in his left knee is well-controlled. He has been ambulating with a walker with minimal assistance. Patient has been working with physical therapy. Patient is tolerating his diet well. He is voiding without issues. Patient is comfortable being discharged home today. Patient denies chest pain, shortness of breath, nausea, vomiting, fevers, chills. On examination, the patient is sitting up in the bedside chair in no apparent distress. He is alert and orientated 3. On inspection of the left knee, there is a clean, dry, intact Optifoam dressing in place. There is no bleeding or drainage the dressing. Patient has good strength and ROM of the left ankle and toes. Motor and sensory function is intact of the left lower extremity. The dorsalis pedis pulse is easily palpable, the left lower extremity is warm and well perfused with brisk capillary refill. Calf is soft and non-tender to palpation. Patient is discharged home with home health care today in good condition, pending medical clearance. Patient will follow-up with Mirtha Avila PA-C, Dr. Anderson in the office in 2 weeks. Please see med rec for accurate list of disc harge medication. Plan - Discharge Summary Discharge Rx Participant: Yes New Discharge Prescriptions: New Aspirin [Adult Low Dose Aspirin EC] 81 mg PO BID #1 tab Gabapentin [Neurontin] 300 mg PO BID 5 Days #10 cap Sennosides-Docusate Sodium [Senokot-S] 1 tab PO BID #60 tablet HYDROcodone/APAP 7.5-325MG [[place] 7.5-325] 1 - 2 tab PO Q6HR PRN #32 tab PRN Reason: Pain Ondansetron Odt [Zofran Odt] 4 mg PO Q8HR PRN #14 tab PRN Reason: Nausea No Action Aspirin 81 mg PO DAILY Allopurinol [Zyloprim] 200 mg PO QAM Simvastatin [Zocor] 80 mg PO HS glipiZIDE [Glucotrol] 5 mg PO AC-BRKFST Metoprolol Succinate (ER) [Toprol XL] 100 mg PO BID 90 Days #180 tablet Multivitamins, Thera [Multivitamin (formulary)] 1 tab PO DAILY [place]-3 Fatty Acids/Fish Oil [Fish Oil 1,000 mg Softgel] 1 each PO DAILY lisinopriL 80 mg PO QAM Meloxicam 15 mg PO DIRECTED PRN PRN Reason: Pain metFORMIN HCL [Glucophage XR] 750 mg PO BID Discharge Medication List Allopurinol [Zyloprim] 200 mg PO QAM 08/12/14 [History] Aspirin 81 mg PO DAILY 08/12/14 [History] Simvastatin [Zocor] 80 mg PO HS 07/21/17 [History] Meloxicam 15 mg PO DIRECTED PRN 08/28/21 [History] glipiZIDE [Glucotrol] 5 mg PO AC-BRKFST 08/28/21 [History] lisinopriL 80 mg PO QAM 08/28/21 [History] Metoprolol Succinate (ER) [Toprol XL] 100 mg PO BID 90 Days #180 tablet 10/23/21 [Rx] Multivitamins, Thera [Multivitamin (formulary)] 1 tab PO DAILY 01/30/22 [History] [place]-3 Fatty Acids/Fish Oil [Fish Oil 1,000 mg Softgel] 1 each PO DAILY 01/30/22 [History] metFORMIN HCL [Glucophage XR] 750 mg PO BID 01/30/22 [History] Aspirin [Adult Low Dose Aspirin EC] 81 mg PO BID #1 tab 02/03/22 [Rx] Gabapentin [Neurontin] 300 mg PO BID 5 Days #10 cap 02/03/22 [Rx] HYDROcodone/APAP 7.5-325MG [[place] 7.5-325] 1 - 2 tab PO Q6HR PRN #32 tab 02/03/22 [Rx] Ondansetron Odt [Zofran Odt] 4 mg PO Q8HR PRN #14 tab 02/03/22 [Rx] Sennosides-Docusate Sodium [Senokot-S] 1 tab PO BID #60 tablet 02/03/22 [Rx] Follow up Appointment(s)/Referral(s): Mirtha Avila, RAE [PHYSICIAN DIGITAL DATA ANALYST] - 2 Weeks Activity/Diet/Wound Care/Special Instructions: May bear wt as tolerated w walker. May shower. Keep Optifoam dressing intact 7 days.
[2022-02-04 11:23] LABS: Glucose,Whole Blood 153 mg/dL (75-99)
[2022-02-04] MEDS: LACTATED RINGERS 1,000 ML IV SCH (12:01)
== END 2022-02-04 14:15 | disposition home health service (06) ==
LOC: OR 10:39 → 4SSUR 14:35 → OR 02-04 07:34 → 4SSUR 02-04 07:34
PROVIDERS: ADMIT Orthopaedic Surgery; ATTEND Orthopaedic Surgery
DX: M17.12 Unilateral primary osteoarthritis, left knee (principal); M21.162 Varus deformity, not elsewhere classified, left knee; E11.9 Type 2 diabetes mellitus without complications; I10 Essential (primary) hypertension; E78.5 Hyperlipidemia, unspecified; G47.33 Obstructive sleep apnea (adult) (pediatric); E78.00 Pure hypercholesterolemia, unspecified; I44.30 Unspecified atrioventricular block; I42.0 Dilated cardiomyopathy; M62.552 Muscle wasting and atrophy, not elsewhere classified, left thigh; M10.9 Gout, unspecified; H91.90 Unspecified hearing loss, unspecified ear; F17.210 Nicotine dependence, cigarettes, uncomplicated; Z79.84 Long term (current) use of oral hypoglycemic drugs; Z79.82 Long term (current) use of aspirin; Z79.899 Other long term (current) drug therapy; Z97.3 Presence of spectacles and contact lenses; Z95.0 Presence of cardiac pacemaker; Z90.49 Acquired absence of other specified parts of digestive tract; Z96.642 Presence of left artificial hip joint; Z98.890 Other specified postprocedural states; Z82.49 Family history of ischemic heart disease and other diseases of the circulatory system
CPT/HCPCS: 97161; 64999; 64448; 76942; 85025; 88300; 83036; 73560; 27447; G0378; C1713; C1776; J2250; J1100; J0690 ×3; J2405; J3010; J1170 ×2; J2795 ×2; J2704

== ENCOUNTER 2024-01-07 08:33 | Emergency (ER) | payer MEDICARE ==
--- NOTE | 2024-01-07 09:23 | ED ---
General Adult HPI - General Chief complaint: Chest Pain Stated complaint: pacemaker pt w/burning sensation on right side Time Seen by Provider: 01/07/24 08:54 Source: patient Mode of arrival: ambulatory Limitations: no limitations - History of Present Illness Initial comments: Dictation was produced using [employer] dictation software. please excuse any gramma tical, word or spelling errors. Chief Complaint: 73-year-old male presents with right shoulder pain History of Present Illness: Patient 73-year-old male presents to the emergency department with right shoulder pain. He has been seeing his primary care doctor for what is believed to be a rotator cuff related pain. States that he has been having shoulder pain has been waking up him up out of bed. Denies any chest pain. States that he is concerned that his pain is related to his pacemaker. He has a pacemaker in his right chest. Denies any nausea or diaphoresis. Patient's pain is nonradiating. It is reproduced with right upper arm extremity. The ROS documented in this emergency department record has been reviewed and confirmed by me. Those systems with pertinent positive or negative responses have been documented in the HPI. All other systems are other negative and/or noncontributory. - Related Data Home Medications Medication Instructions Recorded Confirmed Aspirin 81 mg PO DAILY 08/12/14 01/30/22 allopurinoL [Zyloprim] 200 mg PO QAM 08/12/14 01/30/22 Simvastatin [Zocor] 80 mg PO HS 07/21/17 01/30/22 Meloxicam 15 mg PO DIRECTED PRN 08/28/21 01/30/22 glipiZIDE [Glucotrol] 5 mg PO AC-BRKFST 08/28/21 01/30/22 lisinopriL 80 mg PO QAM 08/28/21 01/30/22 Multivitamins, Thera [Multivitamin 1 tab PO DAILY 01/30/22 01/30/22 (formulary)] [place]-3 Fatty Acids/Fish Oil [Fish 1 each PO DAILY 01/30/22 01/30/22 Oil 1,000 mg Softgel] metFORMIN HCL [Glucophage XR] 750 mg PO BID 01/30/22 01/30/22 Previous Rx's Medication Instructions Recorded Metoprolol Succinate (ER) [Toprol 100 mg PO BID 90 Days #180 tablet 10/23/21 XL] Aspirin [Adult Low Dose Aspirin EC] 81 mg PO BID #1 tab 02/03/22 Gabapentin [Neurontin] 300 mg PO BID 5 Days #10 cap 02/03/22 HYDROcodone/APAP 7.5-325MG [[place] 1 - 2 tab PO Q6HR PRN #32 tab 02/03/22 7.5-325] Ondansetron Odt [Zofran Odt] 4 mg PO Q8HR PRN #14 tab 02/03/22 Sennosides-Docusate Sodium 1 tab PO BID #60 tablet 02/03/22 [Senokot-S] Allergies Allergy/AdvReac Type Severity Reaction Status Date / Time No Known Allergies Allergy Verified 01/07/24 08:51 Review of Systems ROS Statement: Those systems with pertinent positive or pertinent negative responses have been documented in the HPI. ROS Other: All systems not noted in ROS Statement are negative. Past Medical History Past Medical History: Diabetes Mellitus, Hyperlipidemia, Hypertension, Osteoarthritis (OA) Additional Past Medical History / Comment(s): SEE DR ADDISON'S H&P. GOUT History of Any Multi-Drug Resistant Organisms: None Reported Past Surgical History: Adenoidectomy, Cholecystectomy, Heart Catheterization, Joint Replacement, Orthopedic Surgery, Pacemaker, Tonsillectomy Additional Past Surgical History / Comment(s): SEE DR ADDISON'S H&P. TOTAL LEFT HIP, PACEMAKER ([employer]) 2014, LEFT KNEE ARTHROSCOPY Past Anesthesia/Blood Transfusion Reactions: Previous Problems w/ Anesthesia Additional Past Anesthesia/Blood Transfusion Reaction / Comment(s): WOKE UP DURING HIP SURGERY Type of Cardiac Device: Permanent Pacemaker Device Placement Date:: 09/2015 Past Psychological History: No Psychological Hx Reported Smoking Status: Former smoker Past Alcohol Use History: None Reported Past Drug Use History: None Reported - Past Family History Father Family Medical History: No Reported History Brother(s) Family Medical History: CVA/TIA Mother Additional Family Medical History / Comment(s): when patient was 2 years o9ld General Exam - General Exam Comments Initial Comments: PHYSICAL EXAM: General Impression: Alert and oriented x3, not in acute distress HEENT: Normocephalic atraumatic, extra-ocular movements intact, pupils equal and reactive to light bilaterally, mucous membranes moist. Cardiovascular: Heart regular rate and rhythm Chest: Able to complete full sentences, no retractions, no tachypnea Abdomen: abdomen soft, non-tender, non-distended, no organomegaly Musculoskeletal: Pulses present and equal in all extremities, no peripheral edema, right shoulder pain reproduced with right shoulder internal rotation, abduction with an internally and externally rotated shoulder Motor: no focal deficits noted Neurological: CN II-XII grossly intact, no focal motor or sensory deficits noted Skin: Intact with no visualized rashes Psych: Normal affect and mood Limitations: no limitations Course Vital Signs 01/07/24 01/07/24 01/07/24 08:46 09:33 10:30 Temperature 97.7 F 97.0 F L Pulse Rate 76 69 64 Respiratory 20 22 20 Rate Blood Pressure 174/76 150/81 104/48 O2 Sat by Pulse 97 97 97 Oximetry - Reevaluation(s) Reevaluation #1: 01/07/24 12:26 Pacemaker interrogated. [employer] review shows no acute events noted. EKG Findings - EKG Comments: EKG Findings:: My EKG interpretation: Ventricular rate 70, ventricularly paced rhythm,. 133, QRS 141, QTc 430. No ME prolongation, no QTC prolongation, no ST or T-wave changes noted. Overall, this EKG is unremarkable Medical Decision Making - Medical Decision Making Was pt. sent in by a medical professional or institution (, PA, DRESSMAKING TEACHER, urgent care, hospital, or senior living...) When possible be specific @ -No Did you speak to anyone other than the patient for history (EMS, parent, family, police, friend...)? What history was obtained from this source @ -No Did you review nursing and triage notes (agree or disagree)? Why? @ -I reviewed and agree with nursing and triage notes Were old charts reviewed (outside hosp., previous admission, EMS record, old EKG, old radiological studies, urgent care reports/EKG's, senior living records)? Report findings @ -No old charts were reviewed Differential Diagnosis (chest pain, altered mental status, abdominal pain women, abdominal pain men, vaginal bleeding, musculoskeletal, weakness, fever, dyspnea, syncope, headache, dizziness, GI bleed, back pain, seizure, CVA, palpatations, mental health)? @ -Differential Chest Pain: Stable Angina, Unstable Angina, STEMI, NSTEMI Aortic Dissection, Pneumothorax, Musculoskeletal, Esophageal Spasm GERD, Cholecystitis, Pancreatitis, Zoster, this is not meant to be an all-inclusive list. EKG interpreted by me (3pts min.). @ -See above X-rays interpreted by me (1pt min.). @ -No acute processes CT interpreted by me (1pt min.). @ -None done U/S interpreted by me (1pt. min.). @ -None done What testing was considered but not performed or refused? (CT, X-rays, U/S, labs)? Why? @ -None What meds were considered but not given or refused? Why? @ -None Did you discuss the management of the patient with other professionals (dariel farley i.e. , PA, DRESSMAKING TEACHER, lab, RT, psych nurse, social problems specialist, financial institution branch manager, teacher, preventive medicine officer, case consultant)? Give summary @ -No Was smoking cessation discussed for >3mins.? @ -No Was critical care preformed (if so, how long)? @ -No Were there social determinants of health that impacted care today? How? (Homelessness, low income, unemployed, alcoholism, drug addiction, transportation, low edu. Level, literacy, decrease access to med. care, assisted, rehab)? @ -No Was there de-escalation of care discussed even if they declined (Discuss DNR or withdrawal of care, Hospice)? DNR status @ -No What co-morbidities impacted this encounter? (DM, HTN, Smoking, COPD, CAD, Cancer, CVA, ARF, Chemo, Hep., AIDS, mental health diagnosis, sleep apnea, morbid obesity)? @ -None Was patient admitted / discharged? Hospital course, mention meds given and route, prescriptions, significant lab abnormalities, going to OR and other pertinent info. @ -73-year-old male presents emergency department with right shoulder pain. He is concerned that there is issue that is cardiac in nature. Vital signs upon arrival are within acceptable limits. EKG is unremarkable. Labs negative. Imaging negative. Pacemaker interrogated with no acute processes. Patient symptoms are very typical. Seems to be significantly related to shoulder issues. Patient be discharged. Undiagnosed new problem with uncertain prognosis? @ -No Drug Therapy requiring intensive monitoring for toxicity (Heparin, Nitro, Insulin, Cardizem)? @ -No Were any procedures done? @ -No Diagnosis/symptom? Acute, or Chronic, or Acute on Chronic? Uncomplicated (without systemic symptoms) or Complicated (systemic symptoms)? @ -Shoulder pain Side effects of treatment? @ -No Exacerbation, Progression, or Severe Exacerbation? @ -No Poses a threat to life or bodily function? How? (Chest pain, USA, VT, pneumonia, PE, COPD, DKA, ARF, appy, cholecystitis, CVA, Diverticulitis, Homicidal, Suicidal, threat to staff... and all critical care pts) @ -No - Lab Data Result diagrams: 01/07/24 09:32 01/07/24 09:32 Lab Results 01/07/24 01/07/24 01/07/24 Range/Units 09:32 09:32 09:32 WBC 8.1 (3.8-10.6) k/uL RBC 4.22 L (4.30-5.90) m/uL Hgb 12.7 L (13.0-17.5) gm/dL Hct 38.1 L (39.0-53.0) % MCV 90.2 (80.0-100.0) fL MCH 30.0 (25.0-35.0) pg MCHC 33.3 (31.0-37.0) g/dL RDW 13.3 (11.5-15.5) % Plt Count 187 (150-450) k/uL MPV 8.4 Neutrophils % 66 % Lymphocytes % 18 % Monocytes % 6 % Eosinophils % 7 % Basophils % 0 % Neutrophils # 5.4 (1.3-7.7) k/uL Lymphocytes # 1.4 (1.0-4.8) k/uL Monocytes # 0.5 (0-1.0) k/uL Eosinophils # 0.6 (0-0.7) k/uL Basophils # 0.0 (0-0.2) k/uL PT 10.8 (10.0-12.5) sec INR 1.0 (<1.2) APTT 24.2 (22.0-30.0) sec Sodium 137 (137-145) mmol/L Potassium 4.5 (3.5-5.1) mmol/L Chloride 107 (98-107) mmol/L Carbon Dioxide 25 (22-30) mmol/L Anion Gap 5 mmol/L BUN 14 (9-20) mg/dL Creatinine 0.76 (0.66-1.25) mg/dL Est GFR (CKD-EPI)AfAm >90 (>60 ml/min/1.73 sqM) Est GFR (CKD-EPI)NonAf 89 (>60 ml/min/1.73 sqM) Glucose 184 H (74-99) mg/dL Calcium 9.6 (8.4-10.2) mg/dL Magnesium 1.6 (1.6-2.3) mg/dL Total Bilirubin 1.0 (0.2-1.3) mg/dL AST 22 (17-59) U/L ALT 17 (4-49) U/L Alkaline Phosphatase 72 (38-126) U/L Troponin I (0.000-0.034) ng/mL Total Protein 6.9 (6.3-8.2) g/dL Albumin 4.1 (3.5-5.0) g/dL 01/07/24 Range/Units 09:32 WBC (3.8-10.6) k/uL RBC (4.30-5.90) m/uL Hgb (13.0-17.5) gm/dL Hct (39.0-53.0) % MCV (80.0-100.0) fL MCH (25.0-35.0) pg MCHC (31.0-37.0) g/dL RDW (11.5-15.5) % Plt Count (150-450) k/uL MPV Neutrophils % % Lymphocytes % % Monocytes % % Eosinophils % % Basophils % % Neutrophils # (1.3-7.7) k/uL Lymphocytes # (1.0-4.8) k/uL Monocytes # (0-1.0) k/uL Eosinophils # (0-0.7) k/uL Basophils # (0-0.2) k/uL PT (10.0-12.5) sec INR (<1.2) APTT (22.0-30.0) sec Sodium (137-145) mmol/L Potassium (3.5-5.1) mmol/L Chloride (98-107) mmol/L Carbon Dioxide (22-30) mmol/L Anion Gap mmol/L BUN (9-20) mg/dL Creatinine (0.66-1.25) mg/dL Est GFR (CKD-EPI)AfAm (>60 ml/min/1.73 sqM) Est GFR (CKD-EPI)NonAf (>60 ml/min/1.73 sqM) Glucose (74-99) mg/dL Calcium (8.4-10.2) mg/dL Magnesium (1.6-2.3) mg/dL Total Bilirubin (0.2-1.3) mg/dL AST (17-59) U/L ALT (4-49) U/L Alkaline Phosphatase (38-126) U/L Troponin I <0.012 (0.000-0.034) ng/mL Total Protein (6.3-8.2) g/dL Albumin (3.5-5.0) g/dL Disposition Clinical Impression: Shoulder pain Disposition: HOME SELF-CARE Condition: Good Instructions (If sedation given, give patient instructions): Shoulder Pain (ED) Is patient prescribed a controlled substance at d/c from ED?: No Referrals: Yanique Lee MD [Primary Care Provider] - 1-2 days Time of Disposition: 12:30
[2024-01-07 09:48] LABS: Basophils % (A) 0 %; Eosinophils # (A) 0.6 k/uL (0-0.7); Eosinophils % (A) 7 %; HCT 38.1 % (39.0-53.0); HGB 12.7 gm/dL (13.0-17.5); Lymphocytes # (A) 1.4 k/uL (1.0-4.8); Lymphocytes % (A) 18 %; MCHC 33.3 g/dL (31.0-37.0); MCV 90.2 fL (80.0-100.0); Mean Platelet Volume 8.4; Monocytes # (A) 0.5 k/uL (0-1.0); Monocytes % (A) 6 %; Neutrophils # (A) 5.4 k/uL (1.3-7.7); Neutrophils % (A) 66 %; Platelet Count 187 k/uL (150-450); RBC 4.22 m/uL (4.30-5.90); RDW 13.3 % (11.5-15.5); WBC 8.1 k/uL (3.8-10.6)
[2024-01-07 09:59] LABS: Partial Thromboplastin Time 24.2 sec (22.0-30.0); Prothrombin Time 10.8 sec (10.0-12.5)
[2024-01-07 10:01] LABS: ALT 17 U/L (4-49); AST 22 U/L (17-59); African American GFR (CKD) >90 (>60 ml/min/1.73 sqM); Albumin 4.1 g/dL (3.5-5.0); Alkaline Phosphatase 72 U/L (38-126); Anion Gap 5 mmol/L; Blood Urea Nitrogen 14 mg/dL (9-20); Calcium 9.6 mg/dL (8.4-10.2); Carbon Dioxide 25 mmol/L (22-30); Chloride 107 mmol/L (98-107); Glucose 184 mg/dL (74-99); Magnesium 1.6 mg/dL (1.6-2.3); Non-African American GFR(CKD) 89 (>60 ml/min/1.73 sqM); Potassium 4.5 mmol/L (3.5-5.1); Sodium 137 mmol/L (137-145); Total Protein 6.9 g/dL (6.3-8.2)
--- NOTE | 2024-01-07 10:02 | XR ---
EXAMINATION TYPE: XR chest 2V DATE OF EXAM: 01/07/2024 9:50 AM CLINICAL INDICATION:Male, 73 years old with history of Chest Pain; [facility] COMPARISON: Chest radiographs from 10/22/2021 TECHNIQUE: XR chest 2V Frontal and lateral views of the chest. FINDINGS: Lungs/Pleura: There is no evidence of pleural effusion, focal consolidation, or pneumothorax. Pulmonary vascularity: Unremarkable. Heart/mediastinum: Cardiomediastinal silhouette is enlarged and stable. Three lead cardiac conduction device overlying the right hemithorax with lead tips projecting over the right ventricle, right atri um and coronary sinus. Musculoskeletal: No acute osseous pathology. Other findings: None IMPRESSION: 1. No acute cardiopulmonary disease process. No significant change from prior. 2. COPD changes.
--- NOTE | 2024-01-07 10:04 | XR ---
EXAMINATION TYPE: XR shoulder complete RT DATE OF EXAM: 01/07/2024 9:50 AM CLINICAL INDICATION:Male, 73 years old with history of shoulder pain; [facility] COMPARISON: Same day chest radiograph TECHNIQUE: XR shoulder complete RT; examined in AP, internally rotated and scapular Y projections. FINDINGS: No evidence of acute osseous pathology, joint dislocation, or soft tissue swelling. The remaining po rtions of the visualized chest are unremarkable. Mild degeneration changes of the left acromion, dis supa clavicle with osteophyte formation. There is osteophyte formation of the glenoid and humeral head . There is joint space narrowing of glenohumeral joint cardiac conduction device present. 1 wire appe ars floating clinical correlation is advised. IMPRESSION: 1. No acute osseous pathology. 2. Mild degeneration changes of the right shoulder.
[2024-01-07 11:32] VITALS: BP 104/48; TEMP 97
[2024-01-07 12:33] VITALS: PULSE 63; RESP 18
== END 2024-01-07 12:42 | disposition home or self-care (01) ==
LOC: EC 08:33
DX: M25.511 Pain in right shoulder (principal); E11.9 Type 2 diabetes mellitus without complications; E78.5 Hyperlipidemia, unspecified; I10 Essential (primary) hypertension; J44.9 Chronic obstructive pulmonary disease, unspecified; Z87.891 Personal history of nicotine dependence; Z79.84 Long term (current) use of oral hypoglycemic drugs; Z95.0 Presence of cardiac pacemaker; Z79.82 Long term (current) use of aspirin
CPT/HCPCS: 36415; 71046; 80053; 83735; 84484; 85025; 85610; 85730; 93005; 99285

== ENCOUNTER → 2024-11-10 | Outpatient (CLI) | payer MEDICARE ==
[2024-11-10 14:50] LABS: African American GFR (CKD) 82 (>60 ml/min/1.73 sqM); Blood Urea Nitrogen 18 mg/dL (9-20); Non-African American GFR(CKD) 71 (>60 ml/min/1.73 sqM)
--- NOTE | 2024-11-10 19:14 | CT ---
EXAMINATION TYPE: CT angio chest DATE OF EXAM: 11/10/2024 4:08 PM COMPARISON: None CLINICAL INDICATION: Male, 74 years old with history of I71.20 THORACIC AORTIC ANEURYSM, WITHOUT RUPT URE,; Thoracic aortic aneurysm. Pt had difficulty with breathing instructions TECHNIQUE/CONTRAST: CTA scan of the thorax is performed without and with IV Contrast, patient injected with 100 mL of Iso sada 300, 3D and MIP reconstructed images are created on an independent workstation and reviewed. CT DLP: No DLP machine error post scan mGycm, Automated exposure control for dose reduction was used. FINDINGS: Lungs/Pleura: No evidence of focal consolidation, pleural effusion or pneumothorax. Intrafissural lym ph node along the right major fissure. Airway: Large airways are patent. Heart: The heart is mildly enlarged for size. Cardiac conduction partially visualized terminating in the right ventricle and right atrium. Vasculature: No evidence for intramural hematoma on noncontrast imaging. No evidence of intimal flap to suggest dissection. Ascending thoracic aorta ectasia up to 49 mm No evidence for aneurysm.. Scatte red atherosclerotic disease. Multiple collateral vessels are seen within the right shoulder possibly secondary to cardiac conduction leads insertion with partial occlusion of the vascular structures. Th ere is no evidence for a filling defect within the pulmonary vasculature to suggest acute pulmonary e mbolism. The pulmonary artery is of normal size. Mediastinum: No gross evidence of adenopathy. Musculoskeletal: Moderate degenerative disc disease changes are present throughout the thoracolumbar spine. Bridging osteophytes along the anterior longitudinal ligament throughout the thoracic spine. M oderate Soft Tissues/lymph nodes: Unremarkable. Lower neck: No significant findings. Upper Abdomen: Gallbladder surgically absent. Few scattered colonic diverticula. Moderate amount of s tool. Right renal cortical cyst. IMPRESSION: 1. No evidence for dissection or occlusion. No evidence for pulmonary embolus in the central pulmona ry vasculature. 2. Ascending thoracic aorta ectasia up to 49 mm No evidence for aneurysm. 3. Suspected occlusion and or partial occlusion of the venous system of the right upper shoulder wit h multiple collateral vessels identified. Consider evaluation with right upper extremity deep vein th rombosis study. 4. Diffuse idiopathic skeletal hyperostosis. 5. Moderate degeneration changes throughout the spine. 6. Colonic diverticulosis. [facility], , 11/10/2024 7:12 PM
== END | disposition home or self-care (01) ==
LOC: RADCTMAIN 13:49
PROVIDERS: ATTEND Internal Medicine Clinical Cardiac Electrophysiology
DX: I71.20 Thoracic aortic aneurysm, without rupture, unspecified (principal); K57.30 Diverticulosis of large intestine without perforation or abscess without bleeding; M48.14 Ankylosing hyperostosis [Forestier], thoracic region; I82.621 Acute embolism and thrombosis of deep veins of right upper extremity; N28.1 Cyst of kidney, acquired
CPT/HCPCS: 82565; 84520; 71275; 36415; Q9967

== ENCOUNTER 2024-12-11 09:20 | Emergency (ER) | payer MEDICARE ==
[2024-12-11 09:40] VITALS: RESP 18
--- NOTE | 2024-12-11 10:13 | ED ---
General Adult HPI - General Chief complaint: Back Pain/Injury Stated complaint: low back pain Time Seen by Provider: 12/11/24 09:55 Source: patient, RN notes reviewed, old records reviewed Mode of arrival: ambulatory Limitations: no limitations - History of Present Illness Initial comments: Patient is a 74-year-old male who presents emergency department complaining of back pain. He has a history of ascending thoracic aortic aneurysm. Patient has been having right lower back pain for the last 5 to 6 days. Seems musculoskeletal as patient states it is worse with movement but nothing seems to improve the pain. Has been taking Tylenol, attempting rest, ice, heat packs without much improvement. Denies any other symptoms including denying chest pain, shortness of breath, nausea, vomiting, diarrhea. Is concerned that it may be his aneurysm which is why presents for further evaluation. Patient also has a history of a pacemaker due to heart block. Also history of hypertension. Presents for further evaluation at this time. He has no urinary complaints. Denies nausea or vomiting, diarrhea. States that the pain does occasionally radiate to the flank however this is more of a discomfort and not the same pain that he is feeling in the right lower back. - Related Data Home Medications Medication Instructions Recorded Confirmed Aspirin 81 mg PO DAILY 08/12/14 01/30/22 allopurinoL [Zyloprim] 200 mg PO QAM 08/12/14 01/30/22 Simvastatin [Zocor] 80 mg PO HS 07/21/17 01/30/22 Meloxicam 15 mg PO DIRECTED PRN 08/28/21 01/30/22 glipiZIDE [Glucotrol] 5 mg PO AC-BRKFST 08/28/21 01/30/22 lisinopriL 80 mg PO QAM 08/28/21 01/30/22 Multivitamins, Thera [Multivitamin 1 tab PO DAILY 01/30/22 01/30/22 (formulary)] [place]-3 Fatty Acids/Fish Oil [Fish 1 each PO DAILY 01/30/22 01/30/22 Oil 1,000 mg Softgel] metFORMIN HCL [Glucophage XR] 750 mg PO BID 01/30/22 01/30/22 Previous Rx's Medication Instructions Recorded Metoprolol Succinate (ER) [Toprol 100 mg PO BID 90 Days #180 tablet 10/23/21 XL] Aspirin [Adult Low Dose Aspirin EC] 81 mg PO BID #1 tab 02/03/22 Gabapentin [Neurontin] 300 mg PO BID 5 Days #10 cap 02/03/22 HYDROcodone/APAP 7.5-325MG [[place] 1 - 2 tab PO Q6HR PRN #32 tab 02/03/22 7.5-325] Ondansetron Odt [Zofran Odt] 4 mg PO Q8HR PRN #14 tab 02/03/22 Sennosides-Docusate Sodium 1 tab PO BID #60 tablet 02/03/22 [Senokot-S] Cyclobenzaprine [Flexeril] 5 mg PO TID PRN 5 Days #15 tablet 12/11/24 Lidocaine 5% Patch [Lidoderm 5% 1 patch TOPICAL DAILY PRN 14 Days 12/11/24 Patch] #14 patch Allergies Allergy/AdvReac Type Severity Reaction Status Date / Time No Known Allergies Allergy Verified 12/11/24 09:33 Review of Systems ROS Statement: Those systems with pertinent positive or pertinent negative responses have been documented in the HPI. Review of Systems: CONST: Denies fever EYES: Denies blurry vision ENT: Denies nasal congestion C/V: Denies Chest pain RESP: Denies shortness of breath GI: Denies abdominal pain : Denies dysuria SKIN: Denies rash. MSK: Endorses back pain NEURO: Denies headache ROS Other: All systems not noted in ROS Statement are negative. Past Medical History Past Medical History: Diabetes Mellitus, Hyperlipidemia, Hypertension, Osteoarthritis (OA) Additional Past Medical History / Comment(s): SEE DR ADDISON'S H&P. GOUT. Aortic aneurysm 4.9 cm History of Any Multi-Drug Resistant Organisms: None Reported Past Surgical History: Adenoidectomy, Cholecystectomy, Heart Catheterization, Joint Replacement, Orthopedic Surgery, Pacemaker, Tonsillectomy Additional Past Surgical History / Comment(s): SEE DR ADDISON'S H&P. TOTAL LEFT HIP, PACEMAKER ([employer]) 2014, LEFT KNEE ARTHROSCOPY Past Anesthesia/Blood Transfusion Reactions: Previous Problems w/ Anesthesia Additional Past Anesthesia/Blood Transfusion Reaction / Comment(s): WOKE UP DURING HIP SURGERY Type of Cardiac Device: Permanent Pacemaker Device Placement Date:: 09/2015 Past Psychological History: No Psychological Hx Reported Smoking Status: Former smoker Past Alcohol Use History: None Reported Past Drug Use History: None Reported - Past Family History Father Family Medical History: No Reported History Brother(s) Family Medical History: CVA/TIA Mother Additional Family Medical History / Comment(s): when patient was 2 years o9ld General Exam - General Exam Comments Initial Comments: General: Appears in no acute distress. HEAD: Normal with no signs of head trauma. EYES: PERRLA, EOMI, conjunctiva normal, no discharge. ENT: Hearing grossly intact, normal oropharynx. RESPIRATORY: Clear breath sounds bilaterally. No wheezes, rales, or rhonchi. C/V: Regular rate and rhythm. S1 and S2 auscultated, no edema, peripheral pulses 2+ and intact throughout ABD: Abd is soft, nontender, nondistended EXT: Normal range of motion, no obvious deformity. Tender to palpation of the right paraspinal muscles of the lumbar spine. This is minimal. Movement seems to provoke the pain more. No midline tenderness to palpation of the cervical, thoracic, lumbar spines. Pelvis is stable. SKIN: No rashes or lesions observed on exposed skin. NEURO: Alert and oriented x 4. Cranial nerves II-XII intact. No focal sensory or strength deficits. Limitations: no limitations Course Vital Signs 12/11/24 12/11/24 09:33 12:11 Temperature 97.9 F Pulse Rate 89 69 Respiratory 18 18 Rate Blood Pressure 137/77 129/63 O2 Sat by Pulse 98 97 Oximetry Medical Decision Making - Medical Decision Making Was pt. sent in by a medical professional or institution (, PA, STORE RECEIVER, urgent care, hospital, or fdc...) When possible be specific @ -No Did you speak to anyone other than the patient for history (EMS, parent, family, police, friend...)? What history was obtained from this source @ -No Did you review nursing and triage notes (agree or disagree)? Why? @ -I reviewed and agree with nursing and triage notes Were old charts reviewed (outside hosp., previous admission, EMS record, old EKG, old radiological studies, urgent care reports/EKG's, fdc records)? Report findings @ -Old charts reviewed from 2020 showing new pacemaker placement, as well as CT angiogram reviewed from October 2024 which confirmed the ascending thoracic aortic ectasia. Differential Diagnosis (chest pain, altered mental status, abdominal pain women, abdominal pain men, vaginal bleeding, weakness, fever, dyspnea, syncope, headache, dizziness, GI bleed, back pain, seizure, CVA, palpatations, mental health, musculoskeletal)? @ -Differential Back Pain: Strain, zoster, cauda equina syndrome, epidural abscess, vertebral osteomyelitis, discitis, fracture, subluxation, disc herniation, DJD, spinal stenosis, dissection, AAA, pancreatitis, peptic ulcer disease, pyelonephritis, kidney stone, this is not meant to be an all-inclusive list. EKG interpreted by me (3pts min.). @ -As above X-rays interpreted by me (1pt min.). @ -None done CT interpreted by me (1pt min.). @ -CT angiogram of the chest abdomen pelvis revealed no evidence of acute aortic dissection or aneurysmal complication. Has a chronic aneurysmal dilation which appears similar to prior CTs of the ascending thoracic aorta. Patient also has incidental findings of a small left renal stone that is intrarenal as well as diverticulosis and bilateral fat-containing inguinal hernias.CT lumbar spine shows degenerative disc disease throughout the lumbar spine as well as disc bulge and L3-L4 and L4-L5. All appears to be chronic. Foraminal stenosis, left greater than right. U/S interpreted by me (1pt. min.). @ -None done What testing was considered but not performed or refused? (CT, X-rays, U/S, labs)? Why? @ -None What meds were considered but not given or refused? Why? @ -None Did you discuss the management of the patient with other professionals (professionals i.e. , PA, STORE RECEIVER, lab, RT, psych nurse, mental health social worker, switchboard inspector, teacher, chief information security officer, bilingual case manager)? Give summary @ -No Was smoking cessation discussed for >3mins.? @ -No Was critical care preformed (if so, how long)? @ -No Were there social determinants of health that impacted care today? How? (Homelessness, low income, unemployed, alcoholism, drug addiction, transportation, low edu. Level, literacy, decrease access to med. care, skilled nursing, rehab)? @ -No Was there de-escalation of care discussed even if they declined (Discuss DNR or withdrawal of care, Hospice)? DNR status @ -No What co-morbidities impacted this encounter? (DM, HTN, Smoking, COPD, CAD, Cancer, CVA, ARF, Chemo, Hep., AIDS, mental health diagnosis, sleep apnea, morbid obesity)? @ -Aortic aneurysm, hypertension Was patient admitted / discharged? Hospital course, mention meds given and route, prescriptions, significant lab abnormalities, going to OR and other pertinent info. @ -Patient presents emergency department complaining of back pain that has been persistent for 5 to 6 days. Seems to be musculoskeletal but is not responding to analgesia medications at home. Presents for further evaluation at this time. Patient has a history of a aortic aneurysm and is concerned regarding this. We will obtain CT angiogram to evaluate the aneurysm as well as CT lumbar spine with abdominal laboratory studies. Patient was in agreement this plan. Denies any urinary complaints. Patient be symptomatically treat with IV fluids, lidoca ine patch, morphine. Patient's laboratory studies returned. Remarkable for mild lactic acidosis of 2.1 which is likely chronic. Remainder the labs unremarkable. EKG showed no signs of acute ischemia. Patient's imaging returned showing degenerative change of the spine but no other obvious acute process that would explain his current symptoms. I updated patient. Patient is feeling somewhat improved. Discussed results with the patient. He will be given a Tylenol 3 starter pack as well as a dose of steroids. He will be given a prescription for lidocaine patches, as well as Flexeril. Patient was in agreement this plan. His pain is likely musculoskeletal in nature, whether its neuropathic versus muscle strain is difficult to ascertain at this time. Recommend close follow-up with PCP and return if any worsening symptoms. Patient was in agreement this plan. I will provide the patient with a prescription for Flexeril, lidocaine patch. I instructed the patient to follow up with their PCP in the next 1-3 days.. I explained that the patient should return to the emergency department if they experience any worsening symptoms. Strict return precautions were discussed with the patient. The patient expressed understanding of these instructions. I answered all questions that the patient had. The patient was discharged home in good condition with their prescriptions and follow up information. Undiagnosed new problem with uncertain prognosis? @ -No Drug Therapy requiring intensive monitoring for toxicity (Heparin, Nitro, Insulin, Cardizem)? @ -No Were any procedures done? @ -No Diagnosis/symptom? @ -Acute low back pain, muscle strain Acute, or Chronic, or Acute on Chronic? @ -Acute Uncomplicated (without systemic symptoms) or Complicated (systemic symptoms)? @ -Uncomplicated Side effects of treatment? @ -None Exacerbation, Progression, or Severe Exacerbation] @ -No Poses a threat to life or bodily function? @ -Unlikely at this time - Lab Data Result diagrams: 12/11/24 10:30 12/11/24 10:30 Lab Results 12/11/24 12/11/24 12/11/24 Range/Units 10:30 10:30 10:30 WBC 7.2 (3.8-10.6) k/uL RBC 4.84 (4.30-5.90) m/uL Hgb 14.6 (13.0-17.5) gm/dL Hct 44.6 (39.0-53.0) % MCV 92.1 (80.0-100.0) fL MCH 30.3 (25.0-35.0) pg MCHC 32.8 (31.0-37.0) g/dL RDW 13.2 (11.5-15.5) % Plt Count 175 (150-450) k/uL MPV 7.5 Neutrophils % 69 % Lymphocytes % 20 % Monocytes % 6 % Eosinophils % 3 % Basophils % 0 % Neutrophils # 5.0 (1.3-7.7) k/uL Lymphocytes # 1.5 (1.0-4.8) k/uL Monocytes # 0.5 (0-1.0) k/uL Eosinophils # 0.2 (0-0.7) k/uL Basophils # 0.0 (0-0.2) k/uL PT 10.8 (10.0-12.5) sec INR 1.0 (<1.2) APTT 22.5 (22.0-30.0) sec Sodium 141 (137-145) mmol/L Potassium 4.4 (3.5-5.1) mmol/L Chloride 105 (98-107) mmol/L Carbon Dioxide 25 (22-30) mmol/L Anion Gap 11 mmol/L BUN 19 (9-20) mg/dL Creatinine 1.04 (0.66-1.25) mg/dL Est GFR (CKD-EPI)AfAm 81 (>60 ml/min/1.73 sqM) Est GFR (CKD-EPI)NonAf 70 (>60 ml/min/1.73 sqM) Glucose 156 H (74-99) mg/dL Lactic Ac Sepsis Rflx Plasma Lactic Acid Abdi (0.7-2.0) mmol/L Calcium 10.4 H (8.4-10.2) mg/dL Total Bilirubin 1.6 H (0.2-1.3) mg/dL AST 21 (17-59) U/L ALT 18 (4-49) U/L Alkaline Phosphatase 84 (38-126) U/L Total Protein 7.4 (6.3-8.2) g/dL Albumin 4.6 (3.5-5.0) g/dL Amylase 63 (30-110) U/L Lipase 142 (23-300) U/L Urine Color Urine Appearance (Clear) Urine pH (5.0-8.0) Ur Specific [place] (1.001-1.035) Urine Protein (Negative) Urine Glucose (UA) (Negative) Urine Ketones (Negative) Urine Blood (Negative) Urine Nitrite (Negative) Urine Bilirubin (Negative) Urine Urobilinogen (<2.0) mg/dL Ur Leukocyte Esterase (Negative) 12/11/24 12/11/24 12/11/24 Range/Units 10:30 11:12 12:23 WBC (3.8-10.6) k/uL RBC (4.30-5.90) m/uL Hgb (13.0-17.5) gm/dL Hct (39.0-53.0) % MCV (80.0-100.0) fL MCH (25.0-35.0) pg MCHC (31.0-37.0) g/dL RDW (11.5-15.5) % Plt Count (150-450) k/uL MPV Neutrophils % % Lymphocytes % % Monocytes % % Eosinophils % % Basophils % % Neutrophils # (1.3-7.7) k/uL Lymphocytes # (1.0-4.8) k/uL Monocytes # (0-1.0) k/uL Eosinophils # (0-0.7) k/uL Basophils # (0-0.2) k/uL PT (10.0-12.5) sec INR (<1.2) APTT (22.0-30.0) sec Sodium (137-145) mmol/L Potassium (3.5-5.1) mmol/L Chloride (98-107) mmol/L Carbon Dioxide (22-30) mmol/L Anion Gap mmol/L BUN (9-20) mg/dL Creatinine (0.66-1.25) mg/dL Est GFR (CKD-EPI)AfAm (>60 ml/min/1.73 sqM) Est GFR (CKD-EPI)NonAf (>60 ml/min/1.73 sqM) Glucose (74-99) mg/dL Lactic Ac Sepsis Rflx Y Plasma Lactic Acid Abdi 2.1 H* (0.7-2.0) mmol/L Calcium (8.4-10.2) mg/dL Total Bilirubin (0.2-1.3) mg/dL AST (17-59) U/L ALT (4-49) U/L Alkaline Phosphatase (38-126) U/L Total Protein (6.3-8.2) g/dL Albumin (3.5-5.0) g/dL Amylase (30-110) U/L Lipase (23-300) U/L Urine Color Light Yellow Urine Appearance Clear (Clear) Urine pH 5.0 (5.0-8.0) Ur Specific [place] >1.050 H (1.001-1.035) Urine Protein Negative (Negative) Urine Glucose (UA) 4+ H (Negative) Urine Ketones Negative (Negative) Urine Blood Negative (Negative) Urine Nitrite Negative (Negative) Urine Bilirubin Negative (Negative) Urine Urobilinogen <2.0 (<2.0) mg/dL Ur Leukocyte Esterase Negative (Negative) - EKG Data -: EKG Interpreted by Me EKG Comments: 12-lead Electrocardiogram Interpretation Note EKG was reviewed and interpreted by myself. 12-lead ECG performed at 1014 is interpreted by me as revealing paced rhythm at a rate of 81 beats per minute. PA interval is 145 ms, QRS duration is 155 ms, QTc is 4 and 43 ms. There were no ST or T wave abnormalities to suggest myocardial ischemia or injury. R wave progression across the precordium was delayed. By my interpretation this EKG is non-diagnostic for acute ischemia. Compared with EKG from December 2023. No significant dynamic changes when compared with EKG from that time. Disposition Clinical Impression: Back pain, Muscle strain Disposition: HOME SELF-CARE Condition: Good Instructions (If sedation given, give patient instructions): Acute Low Back Pain (ED) Prescriptions: Cyclobenzaprine [Flexeril] 5 mg PO TID PRN 5 Days #15 tablet PRN Reason: Pain Lidocaine 5% Patch [Lidoderm 5% Patch] 1 patch TOPICAL DAILY PRN 14 Days #14 p atch PRN Reason: Pain Is patient prescribed a controlled substance at d/c from ED?: No Referrals: Yanique Lee MD [Primary Care Provider] - 1-2 days Time of Disposition: 14:00
[2024-12-11] MEDS: SODIUM CHLORIDE 0.9% 1,000 ML IV STA (10:31)
[2024-12-11] MEDS: MORPHINE SULFATE 4 MG/ML SYRINGE IVP STA ×2 (10:33→12:13)
[2024-12-11] MEDS: LIDOCAINE 4% PATCH TOPICAL ONE (10:35)
[2024-12-11 10:36] LABS: Basophils % (A) 0 %; Eosinophils # (A) 0.2 k/uL (0-0.7); Eosinophils % (A) 3 %; HCT 44.6 % (39.0-53.0); HGB 14.6 gm/dL (13.0-17.5); Lymphocytes # (A) 1.5 k/uL (1.0-4.8); Lymphocytes % (A) 20 %; MCH 30.3 pg (25.0-35.0); MCHC 32.8 g/dL (31.0-37.0); MCV 92.1 fL (80.0-100.0); Mean Platelet Volume 7.5; Monocytes # (A) 0.5 k/uL (0-1.0); Monocytes % (A) 6 %; Neutrophils % (A) 69 %; Platelet Count 175 k/uL (150-450); RBC 4.84 m/uL (4.30-5.90); RDW 13.2 % (11.5-15.5); WBC 7.2 k/uL (3.8-10.6)
[2024-12-11 10:53] LABS: Partial Thromboplastin Time 22.5 sec (22.0-30.0); Prothrombin Time 10.8 sec (10.0-12.5)
[2024-12-11 10:54] LABS: ALT 18 U/L (4-49); AST 21 U/L (17-59); African American GFR (CKD) 81 (>60 ml/min/1.73 sqM); Albumin 4.6 g/dL (3.5-5.0); Alkaline Phosphatase 84 U/L (38-126); Amylase 63 U/L (30-110); Anion Gap 11 mmol/L; Blood Urea Nitrogen 19 mg/dL (9-20); Calcium 10.4 mg/dL (8.4-10.2); Carbon Dioxide 25 mmol/L (22-30); Chloride 105 mmol/L (98-107); Glucose 156 mg/dL (74-99); Lipase 142 U/L (23-300); Non-African American GFR(CKD) 70 (>60 ml/min/1.73 sqM); Potassium 4.4 mmol/L (3.5-5.1); Sodium 141 mmol/L (137-145); Total Bilirubin 1.6 mg/dL (0.2-1.3); Total Protein 7.4 g/dL (6.3-8.2)
--- NOTE | 2024-12-11 12:14 | CT ---
EXAMINATION TYPE: CT angio thor/abd pel aorta DATE OF EXAM: 12/11/2024 11:50 AM COMPARISON: None. CLINICAL INDICATION: Male, 74 years old with history of hx of aneurysm. back pain, Back pain x 5 days , history of aneurysm, no known injury TECHNIQUE: CTA scan is performed with axial images are obtained, coronal and sagittal reformatted alberto ges are reviewed. 3-D reconstructed images are created on an independent workstation and reviewed. [facility] images are reviewed. Contrast used:100 mL of Isovue 370 without and with IV Contrast, (none if empty) Oral contrast used: (none if empty) CT DLP: 3266.8 mGycm, Automated exposure control for dose reduction was used. FINDINGS: CTA: There is a three-vessel arch. Minimal vascular calcification is in the distal aortic arch. Asce nding thoracic aorta is prominent measuring 4.6 cm at the main pulmonary artery. The main pulmonary a rtery at the bifurcation is 3.3 cm. Aorta tapers to its visualized course. Thoracic aorta at the diap hragm measures 2.8 cm. Abdominal aorta: Celiac axis and superior mesenteric artery origins appear normal. Some vascular calc ification is present. Renal artery origins have calcification without obvious stenosis. No aneurysmal dilatation is evident. The inferior mesenteric artery appears normal. Aortic bifurcation is normal. Common iliac vessels are normal to the bifurcations. Internal/external iliac vessels are patent. No aortic dissection is evident. Aortic branches likewise appear within normal limits. CT CHEST: Lung windows are clear. Portion of the thyroid visualized is normal. No enlarged mediastina l or hilar adenopathy is evident. CT ABDOMEN: Liver spleen adrenal glands and pancreas appear normal. A splenule is at the splenic hilu m. Gallbladder is surgically absent. Right renal stone is on the posterior lateral right kidney measu ring 1.6 cm. Punctate nonobstructing renal stone is at the posterior left mid kidney. No hydronephros is or hydroureter is evident. Inferior vena cava is normal. Loops of bowel within the abdomen and pel vis appear normal. Appendix is normal. CT PELVIS: Scattered diverticuli within the sigmoid colon. Urinary bladder appears normal. There is l imitation of the pelvis due to beam hardening artifact from left hip prosthesis. Fat-containing ingui nal hernias are present. Prostate contains calcification. IMPRESSION: 1. Aneurysmal dilatation of the ascending thoracic aorta measuring 4.6 cm. 2. No suspicious aortic or other vascular dissection. 3. Punctate nonobstructing left renal stone. 4. Small cortical renal cyst right kidney. 5. Mild diverticulosis without acute diverticulitis sigmoid colon. 6. Bilateral inguinal fat-containing hernias [facility], , 12/11/2024 12:12 PM
--- NOTE | 2024-12-11 12:24 | CT ---
EXAMINATION TYPE: CT lumbar spine wo con DATE OF EXAM: 12/11/2024 11:52 AM COMPARISON: None. CLINICAL INDICATION: Male, 74 years old with history of back pain, Back pain x 5 days, history of ane urysm, no known injury TECHNIQUE: CT of the lumbar spine is performed on a spiral scan at 3 mm thick sections. Reconstructed images are performed in the coronal and sagittal planes. Contrast used: mL of , (none if empty) Oral contrast used: (none if empty) CT DLP: combined 3266.8 mGycm, Automated exposure control for dose reduction was used. FINDINGS: T12-L1: No focal disc herniation or significant disc bulge is evident. No spinal canal stenosis or neural foraminal stenosis is present. L1-L2: No focal disc herniation or significant disc bulge is evident. No spinal canal stenosis. Sev ere left foraminal stenosis present. Moderate right foraminal narrowing Minimal anterior vacuum disc phenomenon is present in the axial plane. L2-L3: Mild disc bulge is present with anterior thecal sac contact. No AP spinal canal stenosis is pr esent. No spinal canal stenosis. Severe left foraminal stenosis present. Mild to moderate right jonnathan inal narrowing There is narrowing of disc height with vacuum disc phenomenon present. L3-L4: No focal disc herniation or significant disc bulge is evident. There is narrowing of disc he ight. Mild spinal canal narrowing is present from disc bulge and ligamentum flavum laxity.. Severe le ft foraminal stenosis present. Mild right foraminal narrowing L4-L5: No focal disc herniation or significant disc bulge is evident. There is loss of disc height. Mild spinal canal narrowing is present from residual disc bulge and facet hypertrophy and ligamentum flavum laxity. Moderate bilateral foraminal stenosis present. L5-S1: No focal disc herniation or significant disc bulge is evident. There is narrowing of disc hei ght. Facet hypertrophy is present. No spinal canal stenosis. Moderate bilateral foraminal stenosis p resent. Vertebral alignment appears normal. IMPRESSION: 1. Degenerative disc changes with greatest loss of disc height at L4-5, vacuum disc phenomenon L2-3. Milder disc changes are present within the remaining lumbar spine. 2. Spinal canal narrowing due to facet hypertrophy, ligamentum flavum laxity and residual disc bulge at L3-4 and L4-5. 3. Multilevel foraminal stenosis especially noted on the left with more severe narrowing. Correlate w ith radicular symptoms. [facility], , 12/11/2024 12:22 PM
[2024-12-11 12:55] LABS: Appearance,Urine Clear (Clear); Bilirubin,Urine Negative (Negative); Blood,Urine Negative (Negative); Color,Urine Light Yellow; Glucose,Urine (UA) 4+ (Negative); Ketones,Urine Negative (Negative); Leukocyte Esterase,Urine Negative (Negative); Nitrite,Urine Negative (Negative); Protein,Urine Negative (Negative); Specific Gravity,Urine >1.050 (1.001-1.035); Urobilinogen,Urine <2.0 mg/dL (<2.0)
[2024-12-11] MEDS: ACET/COD 300 MG/30 MG STARTER PACK 6 TAB BTL PO STA (14:11)
[2024-12-11] MEDS: methylPREDNISolone SOD SUCCI 125 MG/2 ML VIAL IV STA (14:27)
[2024-12-11 14:50] VITALS: BP 136/75; PULSE 78; TEMP 98
== END 2024-12-11 14:50 | disposition home or self-care (01) ==
LOC: EC 09:20
DX: S39.012A Strain of muscle, fascia and tendon of lower back, initial encounter (principal); I10 Essential (primary) hypertension; I71.21 Aneurysm of the ascending aorta, without rupture; Z87.891 Personal history of nicotine dependence; Z79.82 Long term (current) use of aspirin; Z79.899 Other long term (current) drug therapy; Z95.0 Presence of cardiac pacemaker; X58.XXXA Exposure to other specified factors, initial encounter
CPT/HCPCS: 36415; 93005; 80053; 82150; 83605; 83690; 85025; 85610; 85730; 81003; 72131; 71275; 74174; 99284; 96374; 96375; 96376; 96361; J2270; Q9967; J2919